=== PATIENT | female | born 2000 | race Caucasian/White ===

== ENCOUNTER 2020-02-25 15:38 | Inpatient (IN) | payer MEDICAID, SELFPAY ==
[2020-02-25 15:41] VITALS: BP 118/75; PULSE 84; RESP 15; TEMP 36.6; O2SAT 98; BMI 26.6
--- NOTE | 2020-02-25 16:07 | ED.DCSUM_ITS ---
History of Present Illness Chief Complaint: Substance Abuse Informant: Patient Narrative: Patient is a 19-year-old female with a history of anxiety, PTSD, restless leg syndrome who presents to the emergency department to detox from alcohol and fentanyl. Last time she drank was 2 days ago. She typically drinks a half a bottle of liquor per day. She last used fentanyl yesterday. She states that she smokes the fentanyl. She was sober for 7 months up until September. She has been drinking every day and using fentanyl every other day. She has gone through withdrawal before in the past. Denies ever having seizures. She currently is experiencing chills and tremors. She denies any illness including any cough, cold, congestion. No fevers or chills. She has been feeling slightly nauseous but denies any episodes of vomiting. No change in bowel habits. No urinary symptoms. She denies any chance of being . Past Medical History - Allergies and Home Meds Allergies/Adverse Reactions: Allergies No Known Allergies Allergy (Verified 02/25/20 15:38) Primary Care Physician: NOT,DEFINED [NON-STAFF] - Past Medical History: None Surgical History: no surgical history Alcohol: Heavy Drugs: - - Fentanyl Review of Systems All systems negative except as indicated General: Reports: Chills. Denies: Fever, Sweats Eyes: Denies: Visual changes - bilaterally, Diplopia ENT: Denies: Rhinorrhea, Sore throat Cardiovascular: Denies: Chest pain, Palpitations Respiratory: Denies: Dyspnea, Cough, Dyspnea on exertion Gastrointestinal: Reports: Nausea. Denies: Abdominal pain, Vomiting, Diarrhea Genitourinary: Denies: Dysuria, Hematuria, Frequency Musculoskeletal: Denies: Back pain, Extremity Pain Skin: Denies: Rash, Wounds Neurological: Denies: Headache, Weakness, Numbness Physical Exam Vital Signs/Narrative: Vital Signs Temp Pulse Resp BP Pulse Ox 02/25/20 15:41 97.8 F 84 15 118/75 98 Inital Vital Signs reviewed: Yes General: Well nourished, Well developed, No Acute Distress Head: Normocephalic, Atraumatic Eyes: Perrl, EOMI ENT: Moist mucous membranes, No rhinorrhea Neck: Supple, Nontender Cardiovascular: Regular rate, Regular rhythm, No murmurs Respiratory: No distress, CTA bilaterally, Chest nontender Abdomen: Soft, Nontender, Nondistended, Normal bowel sounds Back: Nontender, Normal Inspection Extremities: Nontender, No edema Skin: Normal color, No rash Neurological: Alert, Oriented x3, Cranial nerves II-XII grossly intact, Normal Strength, Normal Sensation Psychological: Normal affect, Normal Mood Diagnostic/Tx/Re-eval - Medical Decision Making Patient presents to the emergency department to detox for alcohol and opiates. Upon arrival to the emerge department vital signs within normal limits. She does not appear in acute distress. Will check basic lab work and plan on admission to the hospital. Lab work did not reveal any significant acute abnormality except for mild elevation in liver enzymes. Her alcohol level is negative. I did discuss with hospitalist admission. Patient understands and is agreeable with this plan. She has been stable throughout ED stay. ED Disposition - Plan for ED Patient: Disposition: [facility] Diagnosis: Alcohol use disorder, Opioid abuse Referrals: NOT,DEFINED [NON-STAFF] -
[2020-02-25 16:43] LABS: Absolute Lymphocyte Count 2.98 X10^3/uL (0.83-4.51); Absolute Neutrophil Count 4.2 X10^3/uL (2.0-7.7); Basophil# 0.08 X10^3/uL; Eosinophil# 0.36 X10^3/uL; Eosinophils% 4.4 % (0-5); Hematocrit 44.1 % (37-47); Hemoglobin 14.2 g/dL (12.0-15.0); Lymphocyte # 2.98 X10^3/ul (4.0); Lymphocyte % 36.5 % (19-41); Mean Corp Hgb Conc 32.2 g/dL (32-36); Mean Corpuscular Hgb 29.6 pg (27.0-32.0); Mean Corpuscular Volume 91.9 fL (81-99); Mean Platelet Vol. 9.8 fl (6.2-12.0); Monocyte# 0.52 X10^3/uL; Monocyte% 6.4 % (0-10); NRBC Flagged by Analyzer 0 % (0-5); Neutrophil # 4.21 X10^3/uL (2.7-7.7); Neutrophil % 51.5 % (47-70); Platelet Count 262 K/mm3 (150-450); RBC Distribution Width CV 11.8 % (11.6-14.6); RBC Distribution Width SD 39.8 fl (35.1-43.9); White Blood Count 8.2 K/mm3 (4.4-11.0)
[2020-02-25 16:56] LABS: ALB/GLOB Ratio 0.9 RATIO (0.9-2.4); AST(SGOT) 55 U/L (15-37); Alanine Aminotransfer ALT/SGPT 77 U/L (13-56); Albumin, Serum 3.4 g/dL (3.2-5.0); Alkaline Phosphatase 90 U/L (45-117); Anion Gap 3 (5-15); BUN 10 mg/dL (7-18); Calcium,Total 8.7 mg/dL (8.5-10.1); Chloride 106 mmol/L (98-107); Creatinine, Serum 0.62 mg/dL (0.55-1.02); EST Glomerular Filtration Rate 128 mL/min (>60); Est Glom Filt Rate - Afr Amer 155 mL/min (>60); Estimated Creatinine Clearance 134.37 ml/min; Globulin 3.9 g/dL (2.2-4.2); Glucose 86 mg/dL (74-106); Protein, Total 7.3 g/dL (6.4-8.2); Sodium Level 137 mmol/L (136-145)
[2020-02-25 17:02] LABS: Internal QC Validated? YES +Cl - CLEAR BKGD
[2020-02-25 17:23] LABS: Pregnancy, Serum, hCG Quali. NEGATIVE Negative (0-9 Nonpreg)
[2020-02-25 17:24] LABS: Alcohol, Blood (Medical)-Serum < 3.0 mg/dL
[2020-02-25 17:44] VITALS: BMI 26.7
[2020-02-25 17:56] VITALS: BP 108/48; PULSE 89; RESP 18; TEMP 36.8; O2SAT 98
--- NOTE | 2020-02-25 18:02 | HP.PCM_ITS ---
Problem List (1) Alcohol use disorder Status: Acute (2) Opioid abuse Status: Acute History of Present Illness Date of Admission: 02/25/20 Chief Complaint: Requesting detox from alcohol and opioids. The patient is a 19 year old F who presents emergency room requesting opioid and alcohol detox. Patient reports she smokes fentanyl, typically every other day. She also reports daily alcohol use, drinking 1/5 of whiskey or more per day. Patient states she completed residential treatment March of last year and was sober until this past September. She denies other drug use. Currently complains of feeling shaky. Current half pack per day smoker. She has a past medical history of anxiety, depression, PTSD. 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 Paternal History Items: Diabetes Review of Systems Constitutional: Reports: - - Feels shaky.. Denies: Chills, Fever, Weight Change HEENT: Denies: Head Aches, Sinus Congestion, Sinus Drainage Cardiovascular: Denies: Chest Pain, Palpitations Respiratory: Denies: Cough, Shortness of breath at rest, Sputum production Gastrointestinal: Denies: Abdominal Pain, Nausea, Vomiting Genitourinary: Denies: Dysuria Musculoskeletal: Denies: Joint Pain, Joint Tenderness Skin: Denies: Rash, Wounds Neurological: Denies: Numbness, Tingling, Focal weakness Psychiatric: Denies: Anxiety, Depression, Homicidal Ideations, Suicidal Ideations Hematologic/ Lymphatic: Denies: Easy Bruising, Easy Bleeding VTE Information - Inpt Only VTE Present on Admission: No VTE Mechan Device Prophylaxis: None VTE Pharm Prophylaxis ordered?: No Reason prophylaxis not ordered:: Treatment Not Indicated Patient Problems: Active and Suspected Problems Alcohol use disorder (Acute) Opioid abuse (Acute) - Physical Exam Vitals/I&O's: Vital Signs Temp Pulse Resp BP Pulse Ox 98.2 F 89 18 108/48 L 98 02/25/20 17:56 02/25/20 17:56 02/25/20 17:56 02/25/20 17:56 02/25/20 17:56 Oxygen Delivery Method Room Air Weight: 165 lb 2.02 oz Body Mass Index (BMI) 26.6 General: Alert, Oriented x3, Cooperative HEENT: Atraumatic, PERRLA, EOMI, Normocephalic Neck: Supple, No JVD, Negative Carotid Bruits Lungs: Clear to auscultation, Normal air movement Cardiovascular: Regular rate, No murmurs Abdomen: Bowel Sounds Present, Soft, Non Tender, Non-Distended Extremities: No clubbing, No cyanosis, No edema, Capillary Refill Less than 3 Seconds Skin: No rashes, No breakdown Musculoskeletal: No Tenderness to Palpation of Joints or Extremities Neurological: Cranial nerves II-XII grossly intact, Neuro grossly intact Psych/Mental Status: Anxious Laboratory Results 02/25/20 16:24: WBC 8.2, RBC 4.80, Hgb 14.2, Hct 44.1, MCV 91.9, MCH 29.6, MCHC 32.2, RDW Std Deviation 39.8, RDW Coeff of [place] 11.8, Plt Count 262, MPV 9.8, Immature Gran % (Auto) 0.200, Neut % (Auto) 51.5, Lymph % (Auto) 36.5, [place] % (Auto) 6.4, Eos % (Auto) 4.4, Baso % (Auto) 1.0, Absolute Neuts (auto) 4.2, Absolute Lymphs (auto) 2.98, Nucleated RBC % 0 02/25/20 16:24: Sodium 137, Potassium 4.0, Chloride 106, Carbon Dioxide 28.0, Anion Gap 3 L, BUN 10, Creatinine 0.62, Estim Creat Clear Calc 134.37, Est GFR (MDRD) Af Amer 155, Est GFR (MDRD) Non-Af 128, BUN/Creatinine Ratio 16.0, Glucose 86, Calcium 8.7, Total Bilirubin 0.30, AST 55 H, ALT 77 H, Alkaline Phosphatase 90, Total Protein 7.3, Albumin 3.4, Globulin 3.9, Albumin/Globulin Ratio 0.9 10/08/20 16:24: Ethyl Alcohol < 3.0 02/25/20 16:26: Urine Opiates Screen Pending, Urine Methadone Screen Pending, Ur Barbiturates Screen Pending, Ur Phencyclidine Scrn Pending, Ur Amphetamines Screen Pending, U Methamphetamin-MDMA Pending, U Benzodiazepines Scrn Pending, Urine Cocaine Screen Pending, U Cannabinoids Screen Pending, Ur Drug Screen Comment 02/25/20 16:26: Serum , Qual NEGATIVE Assessment/Plan All Active Problems Alcohol use disorder (Acute) Opioid abuse (Acute) 1. Polysubstance abuse with opioid and alcohol withdrawal-tox screen pending. Alcohol level on admission normal. Buprenorphine/phenobarb taper. PRN regimen for somatic complaints. Thiamine, folic acid supplementation. [facility] consult. CIWA/Ativan protocol. 2. Tobacco dependence-encouraged cessation. Declines nicotine replacement patch. 3. Anxiety/depression/PTSD-on BuSpar, prazosin, Seroquel. DVT prophylaxis-not indicated, early ambulation This patient was seen by KELLY Santos under the supervision of Dr. Chery.
[2020-02-25 18:24] VITALS: BMI 25.7
[2020-02-25 18:28] VITALS: BP 106/73; PULSE 75; RESP 18; TEMP 36.2; O2SAT 100
[2020-02-25] MEDS: Buprenorphine HCl 2 MG TAB.SUBL 4 MG SL (19:04)
[2020-02-25] MEDS: cloNIDine HCl 0.1 MG Tablet PO (19:04)
[2020-02-25] MEDS: Ondansetron 8 MG Tablet PO (19:04)
[2020-02-25] MEDS: Phenobarbital 32.4 MG Tablet 97.2 MG PO ×2 (19:04→22:37)
[2020-02-25 19:41] LABS: Amphetamine Urine VISTA NEGATIVE (<1000 ng/mL); Barbiturate Urine VISTA NEGATIVE (< 200 ng/mL); Benzodiazepine Urine VISTA NEGATIVE (< 200 ng/mL); Cocaine Urine VISTA POSITIVE (< 300 ng/mL); Ecstacy Urine VISTA NEGATIVE (< 500 ng/mL); Methadone Urine VISTA NEGATIVE (< 300 ng/mL); PCP Urine VISTA NEGATIVE (< 25 ng/mL); THC Urine VISTA NEGATIVE (< 50 ng/mL); Vista UDS pH Range 6
[2020-02-25] MEDS: QUEtiapine 100 MG Tablet 200 MG PO (22:38)
[2020-02-25 22:40] VITALS: BP 102/57; PULSE 67; RESP 18; TEMP 37.1; O2SAT 97
[2020-02-25] MEDS: LORazepam 1 MG Tablet 2 MG PO (22:54)
[2020-02-26 03:24] VITALS: BP 90/38; PULSE 70; RESP 18; TEMP 36.9; O2SAT 96
[2020-02-26] MEDS: Phenobarbital 32.4 MG Tablet 97.2 MG PO ×5 (03:30→18:06)
[2020-02-26] MEDS: Buprenorphine HCl 2 MG TAB.SUBL 4 MG SL ×3 (03:30→18:06)
[2020-02-26 04:21] VITALS: BP 99/48; PULSE 77; RESP 16; TEMP 36.1; O2SAT 95
[2020-02-26 06:01] VITALS: BP 106/59; PULSE 75; O2SAT 94
[2020-02-26] MEDS: Thiamine Hydrochloride 100 MG Tablet PO (10:05)
[2020-02-26] MEDS: busPIRone 15 MG TABLET PO (10:05)
[2020-02-26] MEDS: Folic Acid 1 MG Tablet PO (10:06)
--- NOTE | 2020-02-26 10:06 | ADDICTION ---
This greeting card writer met with patient in her room to conduct ASAM, MSE, AUDIT and DUDIT assessments and to begin discharge planning. Patient was alert and oriented x4 and participated affectively in this session. She appears appropriate for the 4.0 LOC at this time based on recent use of alcohol and fentanyl and her report of current withdrawal symptoms. Her d/c plan is as follows: * patient reports that her mother will be providing transport. * patient has an appointment on 02/29/2020 with [facility] in [place], [place] for counseling and IOP which was scheduled prior to admit into medical withdrawal management at [facility]. * she reported no other needs and declined further d/c planning.
[2020-02-26] MEDS: Ondansetron 8 MG Tablet PO (10:11)
[2020-02-26 10:20] VITALS: BP 105/65; PULSE 75; RESP 16; TEMP 36.6; O2SAT 95
--- NOTE | 2020-02-26 11:56 | PN_ITS ---
<Kaur Kumar DINING CAR STEWARD - Last Filed: 02/26/20 12:01> Patient Problems: Active and Suspected Problems Alcohol use disorder (Acute) Opioid abuse (Acute) Subjective: Patient seen and examined. Drowsy, falling asleep during conversation. Denies current withdrawal symptoms or other complaints. - Physical Exam Vitals/I&O's: Vital Signs Temp Pulse Resp BP Pulse Ox 97.9 F 75 16 105/65 95 02/26/20 10:20 02/26/20 10:20 02/26/20 10:20 02/26/20 10:20 02/26/20 10:20 Oxygen Delivery Method Room Air Weight: 159 lb 6.307 oz Body Mass Index (BMI) 25.7 Intake and Output for Last 24 Hours 02/24/20 02/25/20 02/26/20 23:59 23:59 23:59 Intake Total 820 / 820 720 / 720 Balance 820 / 820 720 / 720 General: Oriented x3, Cooperative, No apparent distress, - - Drowsy HEENT: Atraumatic, PERRLA, EOMI, Normocephalic Neck: Supple, No JVD, Negative Carotid Bruits Lungs: Clear to auscultation, Normal air movement Cardiovascular: Regular rate, No murmurs Abdomen: Bowel Sounds Present, Soft, Non Tender Extremities: No edema, Capillary Refill Less than 3 Seconds Skin: No rashes, No breakdown Musculoskeletal: No Tenderness to Palpation of Joints or Extremities Neurological: Cranial nerves II-XII grossly intact, Neuro grossly intact Psych/Mental Status: Flat Affect Laboratory Results 02/25/20 16:24: WBC 8.2, RBC 4.80, Hgb 14.2, Hct 44.1, MCV 91.9, MCH 29.6, MCHC 32.2, RDW Std Deviation 39.8, RDW Coeff of [place] 11.8, Plt Count 262, MPV 9.8, Immature Gran % (Auto) 0.200, Neut % (Auto) 51.5, Lymph % (Auto) 36.5, [place] % (Auto) 6.4, Eos % (Auto) 4.4, Baso % (Auto) 1.0, Absolute Neuts (auto) 4.2, Absolute Lymphs (auto) 2.98, Nucleated RBC % 0 02/25/20 16:24: Sodium 137, Potassium 4.0, Chloride 106, Carbon Dioxide 28.0, Anion Gap 3 L, BUN 10, Creatinine 0.62, Estim Creat Clear Calc 134.37, Est GFR (MDRD) Af Amer 155, Est GFR (MDRD) Non-Af 128, BUN/Creatinine Ratio 16.0, Glucose 86, Calcium 8.7, Total Bilirubin 0.30, AST 55 H, ALT 77 H, Alkaline Phosphatase 90, Total Protein 7.3, Albumin 3.4, Globulin 3.9, Albumin/Globulin Ratio 0.9 02/25/20 16:24: Ethyl Alcohol < 3.0 02/25/20 16:26: Urine Opiates Screen POSITIVE H, Urine Methadone Screen NEGATIVE, Ur Barbiturates Screen NEGATIVE, Ur Phencyclidine Scrn NEGATIVE, Ur Amphetamines Screen NEGATIVE, U Methamphetamin-MDMA NEGATIVE, U Benzodiazepines Scrn NEGATIVE, Urine Cocaine Screen POSITIVE H, U Cannabinoids Screen NEGATIVE, Ur Drug Screen Comment 02/25/20 16:26: Serum , Qual NEGATIVE Current Medications Acetaminophen (Tylenol) 500 mg PO Q4H PRN PRN PRN Reason: Temp > 100.4 F Buprenorphine HCl (Buprenorphine Hcl) 4 mg SL Q8H [facility]; Taper Stop: 02/28/20 18:59 Last Admin: 02/26/20 10:11 Dose: 4 mg Documented by: Buspirone HCl (Buspar) 15 mg PO DAILY [facility] Last Admin: 02/26/20 10:05 Dose: 15 mg Documented by: Clonidine (Catapres) 0.1 mg PO Q8H PRN PRN PRN Reason: RESTLESSNESS Last Admin: 02/25/20 19:04 Dose: 0.1 mg Documented by: Folic Acid (Folic Acid) 1 mg PO DAILY@0800 [facility] Last Admin: 02/26/20 10:06 Dose: 1 mg Documented by: Ibuprofen (Motrin) 600 mg PO Q8H PRN PRN PRN Reason: Pain Score 1-10/10 Lorazepam (Ativan) 2 mg PO Q2H PRN PRN; Protocol PRN Reason: CIWA score > 8 but <15 Last Admin: 02/25/20 22:54 Dose: 2 mg Documented by: Lorazepam (Ativan) 2 mg PO UD PRN; Protocol PRN Reason: CIWA score >/=15. Lorazepam (Ativan) 2 mg IV Q2H PRN PRN; Protocol PRN Reason: CIWA score > 8 but <15 Lorazepam (Ativan) 2 mg IV UD PRN; Protocol PRN Reason: CIWA score >/=15. Ondansetron HCl (Zofran) 8 mg PO Q8H PRN PRN PRN Reason: NAUSEA Last Admin: 02/26/20 10:11 Dose: 8 mg Documented by: Phenobarbital (Phenobarbital) 97.2 mg PO Q4H [facility]; Taper Stop: 03/01/20 02:59 Last Admin: 02/26/20 10:11 Dose: 97.2 mg Documented by: Quetiapine Fumarate (Seroquel) 200 mg PO QHS [facility] Last Admin: 02/25/20 22:38 Dose: 200 mg Documented by: Sodium Chloride () 10 - 40 ml IV UD PRN PRN Reason: SALINE FLUSH Thiamine HCl (Vitamin B1) 100 mg PO DAILYCM [facility] Last Admin: 02/26/20 10:05 Dose: 100 mg Documented by: Medical Necessity - Tobacco Use Smoking Status: Current every day smoker Tobacco Use: Cigarettes Assessment/Plan All Active Problems Alcohol use disorder (Acute) Opioid abuse (Acute) 1. Polysubstance abuse with opioid and alcohol withdrawal-tox screen positive for opiates and cocaine. Alcohol level on admission normal. Buprenorphine/phenobarb taper. PRN regimen for somatic complaints. Thiamine, folic acid supplementation. [facility] consult. CIWA/Ativan protocol. 2. Tobacco dependence-encouraged cessation. Declines nicotine replacement patch. 3. Anxiety/depression/PTSD-on BuSpar, prazosin, Seroquel. DVT prophylaxis-not indicated, early ambulation This patient was seen by KELLY Santos under the supervision of Dr. Trammell. <Kimberly Trammell - Last Filed: 02/26/20 12:26> - Physical Exam Vitals/I&O's: Vital Signs Temp Pulse Resp BP Pulse Ox 97.9 F 75 16 105/65 95 02/26/20 10:20 02/26/20 10:20 02/26/20 10:20 02/26/20 10:20 02/26/20 10:20 Oxygen Delivery Method Room Air Weight: 159 lb 6.307 oz Body Mass Index (BMI) 25.7 Intake and Output for Last 24 Hours 02/24/20 02/25/20 02/26/20 23:59 23:59 23:59 Intake Total 820 / 820 720 / 720 Balance 820 / 820 720 / 720 Laboratory Results 02/25/20 16:24: WBC 8.2, RBC 4.80, Hgb 14.2, Hct 44.1, MCV 91.9, MCH 29.6, MCHC 32.2, RDW Std Deviation 39.8, RDW Coeff of [place] 11.8, Plt Count 262, MPV 9.8, Immature Gran % (Auto) 0.200, Neut % (Auto) 51.5, Lymph % (Auto) 36.5, [place] % (Auto) 6.4, Eos % (Auto) 4.4, Baso % (Auto) 1.0, Absolute Neuts (auto) 4.2, Absolute Lymphs (auto) 2.98, Nucleated RBC % 0 02/25/20 16:24: Sodium 137, Potassium 4.0, Chloride 106, Carbon Dioxide 28.0, Anion Gap 3 L, BUN 10, Creatinine 0.62, Estim Creat Clear Calc 134.37, Est GFR (MDRD) Af Amer 155, Est GFR (MDRD) Non-Af 128, BUN/Creatinine Ratio 16.0, Glucose 86, Calcium 8.7, Total Bilirubin 0.30, AST 55 H, ALT 77 H, Alkaline Phosphatase 90, Total Protein 7.3, Albumin 3.4, Globulin 3.9, Albumin/Globulin Ratio 0.9 02/25/20 16:24: Ethyl Alcohol < 3.0 02/25/20 16:26: Urine Opiates Screen POSITIVE H, Urine Methadone Screen NEGATIVE, Ur Barbiturates Screen NEGATIVE, Ur Phencyclidine Scrn NEGATIVE, Ur Amphetamines Screen NEGATIVE, U Methamphetamin-MDMA NEGATIVE, U Benzodiazepines Scrn NEGATIVE, Urine Cocaine Screen POSITIVE H, U Cannabinoids Screen NEGATIVE, Ur Drug Screen Comment 02/25/20 16:26: Serum , Qual NEGATIVE Current Medications Acetaminophen (Tylenol) 500 mg PO Q4H PRN PRN PRN Reason: Temp > 100.4 F Buprenorphine HCl (Buprenorphine Hcl) 4 mg SL Q8H [facility]; Taper Stop: 02/28/20 18:59 Last Admin: 02/26/20 10:11 Dose: 4 mg Documented by: Buspirone HCl (Buspar) 15 mg PO DAILY [facility] Last Admin: 02/26/20 10:05 Dose: 15 mg Documented by: Clonidine (Catapres) 0.1 mg PO Q8H PRN PRN PRN Reason: RESTLESSNESS Last Admin: 02/25/20 19:04 Dose: 0.1 mg Documented by: Folic Acid (Folic Acid) 1 mg PO DAILY@0800 [facility] Last Admin: 02/26/20 10:06 Dose: 1 mg Documented by: Ibuprofen (Motrin) 600 mg PO Q8H PRN PRN PRN Reason: Pain Score 1-10/10 Lorazepam (Ativan) 2 mg PO Q2H PRN PRN; Protocol PRN Reason: CIWA score > 8 but <15 Last Admin: 02/26/20 12:14 Dose: 2 mg Documented by: Lorazepam (Ativan) 2 mg PO UD PRN; Protocol PRN Reason: CIWA score >/=15. Lorazepam (Ativan) 2 mg IV Q2H PRN PRN; Protocol PRN Reason: CIWA score > 8 but <15 Lorazepam (Ativan) 2 mg IV UD PRN; Protocol PRN Reason: CIWA score >/=15. Ondansetron HCl (Zofran) 8 mg PO Q8H PRN PRN PRN Reason: NAUSEA Last Admin: 02/26/20 10:11 Dose: 8 mg Documented by: Phenobarbital (Phenobarbital) 97.2 mg PO Q4H [facility]; Taper Stop: 03/01/20 02:59 Last Admin: 02/26/20 10:11 Dose: 97.2 mg Documented by: Quetiapine Fumarate (Seroquel) 200 mg PO QHS [facility] Last Admin: 02/25/20 22:38 Dose: 200 mg Documented by: Sodium Chloride () 10 - 40 ml IV UD PRN PRN Reason: SALINE FLUSH [facility] Admin: 02/26/20 10:05 Dose: 100 mg Documented by: Assessment/Plan Patient seen by Kaur MENDOZA under my supervision Patient seen and examined. She complains of generally feeling horrible today, as she is having abdominal cramps, hot flashes and tremors. Review of systems is otherwise negative. O/E: Vital Signs Temp Pulse Resp BP Pulse Ox 97.9 F 75 16 105/65 95 02/26/20 10:20 02/26/20 10:20 02/26/20 10:20 02/26/20 10:20 02/26/20 10:20 General: Oriented x3, Cooperative, No apparent distress, HEENT: Atraumatic, PERRLA, EOMI, Normocephalic Neck: Supple, No JVD, Negative Carotid Bruits Lungs: Clear to auscultation, Normal air movement Cardiovascular: Regular rate, No murmurs Abdomen: Bowel Sounds Present, Soft, Non Tender Extremities: No edema, Capillary Refill Less than 3 Seconds Skin: No rashes, No breakdown Musculoskeletal: No Tenderness to Palpation of Joints or Extremities Neurological: Cranial nerves II-XII grossly intact, Neuro grossly intact Psych/Mental Status: normal affect Plan is to continue with buprenorphine and phenobarb withdrawal protocol for opiates and alcohol respectively. Monitor CINA and CIWA score. Thiamine, multivitamin folic acid supplementation. Nicotine patch. Rest as per KELLY Santos's notes which I reviewed and endorsed. Inpatient E&M: 21925 Subs Hosp L2
[2020-02-26] MEDS: LORazepam 1 MG Tablet 2 MG PO ×3 (12:14→18:08)
[2020-02-26] MEDS: Ibuprofen 600 MG Tablet PO (12:33)
[2020-02-26] MEDS: cloNIDine HCl 0.1 MG Tablet PO (12:33)
[2020-02-26 17:20] VITALS: BP 156/115; PULSE 75; RESP 16; TEMP 36.7; O2SAT 95
--- NOTE | 2020-02-27 08:46 | PCM.DC.SUM ---
<Kaur Kumar TEXTILE TECHNICAL OFFICER - Last Filed: 02/27/20 08:51> Discharge Date and Diagnosis Date of Admission: 02/25/20 Date of Discharge: 02/26/20 - Primary Discharge Diagnosis Acute Problems: 1. Polysubstance abuse with opioid and alcohol withdrawal 2. Tobacco dependence 3. Anxiety/depression/PTSD Hospital Course and Treatment Operations: None Procedures: None Summary of Care Provided: The patient is a 19 year old F admitted 02/25/2020 due to requesting detox from alcohol and opioids. 1. Polysubstance abuse with opioid and alcohol withdrawal-tox screen positive for opiates and cocaine. Alcohol level on admission normal. Buprenorphine/phenobarb taper during admission. [facility] met with patient during admission and plan was for intensive outpatient program with appointment 02/29/2020 following medical stabilization protocol. However, patient signed out AGAINST MEDICAL ADVICE 24 hours after being admitted. 2. Tobacco dependence-encouraged cessation. Declined nicotine replacement patch. 3. Anxiety/depression/PTSD-on BuSpar, prazosin, Seroquel. General: Alert, Oriented x3, Cooperative HEENT: Atraumatic, PERRLA, EOMI, Normocephalic Neck: Supple, No JVD, Negative Carotid Bruits Lungs: Clear to auscultation, Normal air movement Cardiovascular: Regular rate, No murmurs Abdomen: Bowel Sounds Present, Soft, Non Tender, Non-Distended Extremities: No clubbing, No cyanosis, No edema, Capillary Refill Less than 3 Seconds Skin: No rashes, No breakdown Musculoskeletal: No Tenderness to Palpation of Joints or Extremities Neurological: Cranial nerves II-XII grossly intact, Neuro grossly intact Psych/Mental Status: Anxious Patient seen and examined prior to discharge. Physical assessment as noted above. Patient is stable for discharge with follow up recommendations as noted above. This patient was seen by SYED SantosC under the supervision of Dr. Trammell. - Physical Exam Vitals/I&O's: Vital Signs Temp Pulse Resp BP Pulse Ox 98.0 F 75 16 156/115 H 95 02/26/20 17:20 02/26/20 17:20 02/26/20 17:20 02/26/20 17:20 02/26/20 17:20 Oxygen Delivery Method Room Air Weight: 159 lb 6.307 oz Body Mass Index (BMI) 25.7 Intake and Output for Last 24 Hours 02/25/20 02/26/20 02/27/20 23:59 23:59 23:59 Intake Total 820 / 820 720 / 720 Balance 820 / 820 720 / 720 Home Medications: Medications to take at Discharge Prazosin HCl 2 mg PO QHS 02/25/20 Quetiapine Fumarate [Seroquel] 200 mg PO QHS 02/25/20 busPIRone [Buspar] 15 mg PO DAILY 02/25/20 Primary Care Physician: NOT,DEFINED [NON-STAFF] - Disposition: Against Medical Advice Minutes spent on discharge:: 35 Patient Condition:: Stable Medical Necessity - Tobacco Use Smoking Status: Current every day smoker Tobacco Use: Cigarettes Meaningful Use Info Meaningful Use Diagnoses (Choose all that apply): None applicable <BonnieyesicaKimberly Henley - Last Filed: 02/27/20 13:30> Hospital Course and Treatment Summary of Care Provided: Patient seen by KELLY Santos under my supervision. The patient is a 19 year old F with past medical history of polysubstance abuse was admitted for opioid and alcohol withdrawal. She was started on alcohol withdrawal protocol with phenobarbital and opiate withdrawal protocol with buprenorphine. Patient met with 180 during admission and plan was for her to have intensive outpatient program. Patient appeared to be tolerating withdrawal protocol well but signed out AGAINST MEDICAL ADVICE on 02/26/2020. Patient was seen and examined prior to her leaving [facility]. She complained of feeling listless and complained of cramps and tremors and generally did not feel good because of withdrawal. Review of symptoms otherwise negative. O/E: Vital Signs Temp Pulse Resp BP Pulse Ox 98.0 F 75 16 156/115 H 95 02/26/20 17:20 02/26/20 17:20 02/26/20 17:20 02/26/20 17:20 02/26/20 17:20 [] General: Oriented x3, Cooperative, No apparent distress, HEENT: Atraumatic, PERRLA, EOMI, Normocephalic Neck: Supple, No JVD, Negative Carotid Bruits Lungs: Clear to auscultation, Normal air movement Cardiovascular: Regular rate, No murmurs Abdomen: Bowel Sounds Present, Soft, Non Tender Extremities: No edema, Capillary Refill Less than 3 Seconds Skin: No rashes, No breakdown Musculoskeletal: No Tenderness to Palpation of Joints or Extremities Neurological: Cranial nerves II-XII grossly intact, Neuro grossly intact Psych/Mental Status: normal affect Patient left AGAINST MEDICAL ADVICE. Total time spent on the none evaluating patient and on discharge: 35 mins - Physical Exam Vitals/I&O's: Vital Signs Temp Pulse Resp BP Pulse Ox 98.0 F 75 16 156/115 H 95 02/26/20 17:20 02/26/20 17:20 02/26/20 17:20 02/26/20 17:20 02/26/20 17:20 Oxygen Delivery Method Room Air Weight: 159 lb 6.307 oz Body Mass Index (BMI) 25.7 Intake and Output for Last 24 Hours 02/25/20 02/26/20 02/27/20 23:59 23:59 23:59 Intake Total 820 / 820 720 / 720 Balance 820 / 820 720 / 720 Inpatient E&M: 10172 Disch Hosp
== END 2020-02-26 18:38 | disposition left against medical advice (07) | DRG 770 ==
LOC: ED 16:44 → MS3 19:29
PROVIDERS: Admitting Provider Internal Medicine; Emergency Provider Emergency Medicine; Visit Provider Student in an Organized Health Care Education/Training Program
DX: F10.139 Alcohol abuse with withdrawal, unspecified (principal); F11.13 Opioid abuse with withdrawal; F43.10 Post-traumatic stress disorder, unspecified; F32.9 Major depressive disorder, single episode, unspecified; F41.9 Anxiety disorder, unspecified; F17.210 Nicotine dependence, cigarettes, uncomplicated; Z79.899 Other long term (current) drug therapy
CPT/HCPCS: 80053; 80307; 80320; 84703; 85025; 99283; A4216; G0480

== ENCOUNTER 2020-04-02 16:58 | Inpatient (IN) | payer MEDICAID, SELFPAY ==
[2020-04-02 17:00] VITALS: BP 149/39; PULSE 116; RESP 20; TEMP 36.2; O2SAT 99; BMI 26.6
--- NOTE | 2020-04-02 17:10 | ED.VIS.GEN ---
History of Present Illness Chief Complaint: Substance Abuse Informant: Patient Onset: Month(s) - 6 Timing: Continuous - 2x daily fentanyl use Narrative: Patient presenting wanting detox from fentanyl and less so, alcohol. She has a history of fentanyl abuse and was sober for 8 months until about 6 months ago, and since then she has been using twice daily, smoking. No IV drug use. Also has been drinking, about a 750 mL bottle of week bourbon whiskey every 2 days. Her last use of alcohol was 2-3 days ago, last use of fentanyl was yesterday morning about 30-36 hours prior to arrival. She currently is feeling symptoms of withdrawal from fentanyl, she is malaised, feeling anxious/restless, sweaty, nauseated. - Past Medical History (1) Anxiety Status: Chronic (2) RLS (restless legs syndrome) Status: Chronic Past Medical History - Allergies and Home Meds Allergies/Adverse Reactions: Allergies No Known Allergies Allergy (Verified 04/02/20 17:00) Primary Care Physician: Care Physician,No Primary [Primary Care Provider] - Surgical History: no surgical history Smoking Status: Current every day smoker Alcohol: Heavy Drugs: - - smokes fentanyl - Family History Maternal Family History: Reports: - - Denies known maternal medical history including cardiac history. Paternal Family History: Reports: Diabetes Review of Systems General: Reports: Malaise, Sweats Eyes: Denies: Visual changes - bilaterally, Diplopia ENT: Denies: Bilateral ear pain, Rhinorrhea, Sore throat Cardiovascular: Denies: Chest pain, Palpitations Respiratory: Denies: Dyspnea, Cough, Dyspnea on exertion Gastrointestinal: Reports: Nausea. Denies: Abdominal pain, Vomiting, Diarrhea, Melena, Hematochezia Genitourinary: Reports: - - LNMP 10/, usually regular. Denies: Dysuria, Hematuria, Frequency Musculoskeletal: Reports: Myalgias. Denies: Back pain, Swelling, Extremity Pain Skin: Denies: Rash, Wounds Neurological: Denies: Headache, Weakness, Numbness Physical Exam Vital Signs/Narrative: Vital Signs Temp Pulse Resp BP Pulse Ox 04/02/20 17:00 97.2 F L 116 H 20 H 149/39 H 99 Inital Vital Signs reviewed: Yes General: Well nourished, Well developed, No Acute Distress - Well-appearing Head: Normocephalic, Atraumatic Eyes: Perrl, EOMI ENT: Moist mucous membranes, No rhinorrhea Neck: Supple, Nontender, No lymphadenopathy Cardiovascular: Regular rate, Regular rhythm, No murmurs, Tachycardia Respiratory: No distress, CTA bilaterally, Chest nontender Abdomen: Soft, Nontender, Nondistended, Normal bowel sounds Back: Nontender, Normal Inspection Extremities: Nontender, No edema Skin: Normal color, No rash, No Trauma Neurological: Alert, Oriented x3, Cranial nerves II-XII grossly intact, Normal Strength, Normal Sensation, Normal Gait Psychological: Normal affect, Normal Mood, - - No suicidal ideation Diagnostic/Tx/Re-eval Laboratory Results 04/02/20 04/02/20 04/02/20 17:30 17:30 17:30 WBC 8.4 RBC 4.93 Hgb 14.5 Hct 43.4 MCV 88.0 MCH 29.4 MCHC 33.4 RDW Std Deviation 37.6 RDW Coeff of [place] 11.6 Plt Count 234 MPV 10.3 Immature Gran % (Auto) 0.200 Neut % (Auto) 74.5 H Lymph % (Auto) 19.2 Mineral % (Auto) 4.4 Eos % (Auto) 1.2 Baso % (Auto) 0.5 Absolute Neuts (auto) 6.2 Absolute Lymphs (auto) 1.60 Nucleated RBC % 0 PT 13.4 INR 1.1 Sodium 137 Potassium 4.0 Chloride 111 H Carbon Dioxide 23.0 Anion Gap 3 L BUN 8 Creatinine 0.78 Estim Creat Clear Calc 102.66 Est GFR (MDRD) Af Amer 119 Est GFR (MDRD) Non-Af 98 BUN/Creatinine Ratio 10.2 Glucose 97 Calcium 9.6 Total Bilirubin 0.60 AST 54 H ALT 91 H Alkaline Phosphatase 101 Total Protein 7.8 Albumin 3.8 Globulin 4.0 Albumin/Globulin Ratio 1.0 Urine Color Urine Clarity Urine pH Ur Specific [place] Urine Protein Urine Glucose (UA) Urine Ketones Urine Occult Blood Urine Nitrite Urine Bilirubin Urine Urobilinogen Ur Leukocyte Esterase Urine RBC Urine WBC Ur Squamous Epith Cells Urine Bacteria Urine Mucus Urine Test Urine Opiates Screen Urine Methadone Screen Ur Barbiturates Screen Ur Phencyclidine Scrn Ur Amphetamines Screen U Methamphetamin-MDMA U Benzodiazepines Scrn Urine Cocaine Screen U Cannabinoids Screen Ur Drug Screen Comment Ethyl Alcohol 11/04/02/20 04/02/20 17:30 17:30 17:30 WBC RBC Hgb Hct MCV MCH MCHC RDW Std Deviation RDW Coeff of [place] Plt Count MPV Immature Gran % (Auto) Neut % (Auto) Lymph % (Auto) Mineral % (Auto) Eos % (Auto) Baso % (Auto) Absolute Neuts (auto) Absolute Lymphs (auto) Nucleated RBC % PT INR Sodium Potassium Chloride Carbon Dioxide Anion Gap BUN Creatinine Estim Creat Clear Calc Est GFR (MDRD) Af Amer Est GFR (MDRD) Non-Af BUN/Creatinine Ratio Glucose Calcium Total Bilirubin AST ALT Alkaline Phosphatase Total Protein Albumin Globulin Albumin/Globulin Ratio Urine Color Yellow Urine Clarity Sl. Cloudy Urine pH 6.5 Ur Specific [place] 1.010 Urine Protein Negative Urine Glucose (UA) Normal Urine Ketones Negative Urine Occult Blood Negative Urine Nitrite Negative Urine Bilirubin Negative Urine Urobilinogen Normal Ur Leukocyte Esterase Negative Urine RBC 0 SEEN Urine WBC 0 SEEN Ur Squamous Epith Cells 0-5 SEEN Urine Bacteria 1+ Urine Mucus 0 SEEN Urine Test Negative Urine Opiates Screen NEGATIVE Urine Methadone Screen NEGATIVE Ur Barbiturates Screen NEGATIVE Ur Phencyclidine Scrn NEGATIVE Ur Amphetamines Screen NEGATIVE U Methamphetamin-MDMA NEGATIVE U Benzodiazepines Scrn NEGATIVE Urine Cocaine Screen NEGATIVE U Cannabinoids Screen NEGATIVE Ur Drug Screen Comment Ethyl Alcohol 9.0 - Medical Decision Making Patient is medically cleared. She was given clonidine, Zofran, Vistaril for her withdrawal symptoms. Discussed with hospitalist for detox admission. ED Disposition - Plan for ED Patient: Disposition: Acute Care [facility] Diagnosis: Opiate dependence, Alcohol abuse Referrals: Care Physician,No Primary [Primary Care Provider] -
[2020-04-02] MEDS: cloNIDine HCl 0.1 MG Tablet PO (17:29)
[2020-04-02] MEDS: Ondansetron ODT 4 MG Tablet 8 MG PO (17:29)
[2020-04-02] MEDS: hydrOXYzine PAM 25 MG Capsule 50 MG PO (17:29)
[2020-04-02 17:46] LABS: Mucous, Urine 0 SEEN /hpf (<or=2+); Red Blood Cells-Urine 0 SEEN /hpf (0-5); White Blood Cells 0 SEEN /hpf (0-5)
[2020-04-02 17:47] LABS: Absolute Neutrophil Count 6.2 X10^3/uL (2.0-7.7); Basophil# 0.04 X10^3/uL; Basophil% 0.5 % (0-1); Eosinophils% 1.2 % (0-5); Hematocrit 43.4 % (37-47); Hemoglobin 14.5 g/dL (12.0-15.0); Lymphocyte % 19.2 % (19-41); Mean Corp Hgb Conc 33.4 g/dL (32-36); Mean Corpuscular Hgb 29.4 pg (27.0-32.0); Mean Platelet Vol. 10.3 fl (6.2-12.0); Monocyte# 0.37 X10^3/uL; Monocyte% 4.4 % (0-10); NRBC Flagged by Analyzer 0 % (0-5); Neutrophil # 6.22 X10^3/uL (2.7-7.7); Neutrophil % 74.5 % (47-70); Platelet Count 234 K/mm3 (150-450); RBC Distribution Width CV 11.6 % (11.6-14.6); RBC Distribution Width SD 37.6 fl (35.1-43.9); Red Blood Count 4.93 M/mm3 (4.2-5.4); White Blood Count 8.4 K/mm3 (4.4-11.0)
[2020-04-02 17:49] LABS: Color, Urine Yellow (Yellow); Glucose, Dipstick Normal (Normal); Ketone-Dipstick Negative (Negative); Leukocyte Esterase-Dipstick Negative /ul (Negative); Nitrite-Dipstick Negative (Negative); Occult Blood-Urine Negative /ul (Negative); Protein-Dipstick Negative (Negative); Urine Bilirubin Dipstick Negative (Negative); Urine Clarity Sl. Cloudy (Clear); Urine Urobilinogen Normal (Normal); Urine pH 6.5 (5.0 - 8.0)
[2020-04-02 17:55] LABS: Bacteria 1+ /hpf (None Seen); Squamous Epithelial Cells - UA 0-5 SEEN /hpf (5-10)
[2020-04-02 17:56] LABS: Internal QC Validated? YES +Cl - CLEAR BKGD; International Normalized Ratio 1.1; Pregnancy, Urine Negative Negative; Prothrombin Time (Protime)PT. 13.4 SECONDS (11.7-14.9)
[2020-04-02 18:03] LABS: Amphetamine Urine VISTA NEGATIVE (<1000 ng/mL); Barbiturate Urine VISTA NEGATIVE (< 200 ng/mL); Benzodiazepine Urine VISTA NEGATIVE (< 200 ng/mL); Cocaine Urine VISTA NEGATIVE (< 300 ng/mL); Ecstacy Urine VISTA NEGATIVE (< 500 ng/mL); Methadone Urine VISTA NEGATIVE (< 300 ng/mL); PCP Urine VISTA NEGATIVE (< 25 ng/mL); THC Urine VISTA NEGATIVE (< 50 ng/mL); Vista UDS pH Range 6
[2020-04-02 18:04] LABS: AST(SGOT) 54 U/L (15-37); Alanine Aminotransfer ALT/SGPT 91 U/L (13-56); Albumin, Serum 3.8 g/dL (3.2-5.0); Alkaline Phosphatase 101 U/L (45-117); Anion Gap 3 (5-15); BUN 8 mg/dL (7-18); BUN/Creat Ratio 10.2 RATIO (10-20); Calcium,Total 9.6 mg/dL (8.5-10.1); Chloride 111 mmol/L (98-107); Creatinine, Serum 0.78 mg/dL (0.55-1.02); EST Glomerular Filtration Rate 98 mL/min (>60); Est Glom Filt Rate - Afr Amer 119 mL/min (>60); Estimated Creatinine Clearance 102.66 ml/min; Glucose 97 mg/dL (74-106); Protein, Total 7.8 g/dL (6.4-8.2); Sodium Level 137 mmol/L (136-145)
[2020-04-02 18:23] VITALS: BP 111/70; PULSE 89; RESP 18; TEMP 37.1; O2SAT 98
--- NOTE | 2020-04-02 18:28 | PCM.HP.STD ---
Problem List (1) Opiate withdrawal Status: Acute (2) Alcohol abuse Status: Acute (3) Alcohol use disorder Status: Acute (4) Opiate dependence Status: Acute (5) Opioid abuse Status: Acute (6) Anxiety Status: Chronic (7) RLS (restless legs syndrome) Status: Chronic History of Present Illness Date of Admission: 04/02/20 Chief Complaint: agitation. restlessness. The patient is a 19 year old F presents seeking treatment for fentanyl and alcohol withdrawal. Patient's last use of fentanyl was around 9 AM on the and last consumption of alcohol was about 3 days ago. Since then, more recently since last using fentanyl, she has been having some agitation, restlessness rhinitis. Patient was just here earlier in the week and then left AGAINST MEDICAL ADVICE. She states that she does not want to be put on Suboxone as it can precipitate withdrawal. I told her that she would not be that she would be on the just buprenorphine itself and total taper. She stated that she would prefer just to be on lorazepam. Told her that I am concerned most of her symptoms are associated with opiate withdrawal we will treat her as such. [] Past Medical History Past Medical History (Chronic Problems): Chronic Problems Anxiety (Chronic) RLS (restless legs syndrome) (Chronic) Allergies No Known Allergies Allergy (Verified 04/02/20 17:00) Home Medications: Ambulatory Orders Medication Instructions Recorded Prazosin HCl 2 mg PO QHS 02/25/20 Quetiapine Fumarate [Seroquel] 200 mg PO QHS 02/25/20 busPIRone [Buspar] 15 mg PO DAILY 02/25/20 Gabapentin [Neurontin] 600 mg PO DAILY 04/02/20 Gabapentin [Neurontin] 800 mg PO QHS 04/02/20 Hydroxyzine Pamoate [Vistaril] 50 mg PO TID PRN 04/02/20 Surgical History: no surgical history Psychiatric History: Anxiety, Depression, Post traumatic stress 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 Paternal History Items: Diabetes Review of Systems Constitutional: Denies: Anorexia, Chills, Fever Eyes: Denies: Blurred vision, Eyelid Inflammation HEENT: Reports: - - Rhinitis. Denies: Head Aches, Sinus Congestion, Sinus Drainage Cardiovascular: Denies: Chest Pain, Palpitations Respiratory: Denies: Cough, Shortness of breath at rest, Sputum production Hematologic/ Lymphatic: Denies: Easy Bruising, Easy Bleeding, Hx of blood clot Comment: All review of systems were negative except as mentioned above in the history of present illness and the other review of systems. VTE Information - Inpt Only VTE Present on Admission: No VTE Mechan Device Prophylaxis: None VTE Pharm Prophylaxis ordered?: No Reason prophylaxis not ordered:: Treatment Not Indicated Patient Problems: Active and Suspected Problems Alcohol use disorder (Acute) Opioid abuse (Acute) Opiate dependence (Acute) Alcohol abuse (Acute) Opiate withdrawal (Acute) - Physical Exam Vitals/I&O's: Vital Signs Temp Pulse Resp BP Pulse Ox 37.1 C 89 18 111/70 98 04/02/20 18:23 04/02/20 18:23 04/02/20 18:23 04/02/20 18:23 04/02/20 18:23 Oxygen Delivery Method Room Air Weight: 72.575 kg Body Mass Index (BMI) 26.6 General: Alert, Cooperative, No apparent distress HEENT: Atraumatic, Normocephalic Oral: Moist Mucosa, No Gingival or Mucosal Lesions/ Ulcerations Neck: No Nodes, Thyroid Normal Size and Texture Lungs: Clear to auscultation, Normal air movement, No rhonchi, No wheeze, No rales Cardiovascular: Regular rate, Regular Rhythm, Normal S1, Normal S2, No murmurs Abdomen: Bowel Sounds Present, Soft, Non Tender, Non-Distended, No Hepato-splenomegaly Extremities: No edema, No Calf Tenderness Skin: No rashes, No breakdown Psych/Mental Status: Appropriate, Anxious Laboratory Results 04/02/20 17:30: WBC 8.4, RBC 4.93, Hgb 14.5, Hct 43.4, MCV 88.0, MCH 29.4, MCHC 33.4, RDW Std Deviation 37.6, RDW Coeff of [place] 11.6, Plt Count 234, MPV 10.3, Immature Gran % (Auto) 0.200, Neut % (Auto) 74.5 H, Lymph % (Auto) 19.2, [place] % (Auto) 4.4, Eos % (Auto) 1.2, Baso % (Auto) 0.5, Absolute Neuts (auto) 6.2, Absolute Lymphs (auto) 1.60, Nucleated RBC % 0 04/02/20 17:30: PT 13.4, INR 1.1 04/02/20 17:30: Sodium 137, Potassium 4.0, Chloride 111 H, Carbon Dioxide 23.0, Anion Gap 3 L, BUN 8, Creatinine 0.78, Estim Creat Clear Calc 102.66, Est GFR (MDRD) Af Amer 119, Est GFR (MDRD) Non-Af 98, BUN/Creatinine Ratio 10.2, Glucose 97, Calcium 9.6, Total Bilirubin 0.60, AST 54 H, ALT 91 H, Alkaline Phosphatase 101, Total Protein 7.8, Albumin 3.8, Globulin 4.0, Albumin/Globulin Ratio 1.0 04/02/20 17:30: Ethyl Alcohol 9.0 04/02/20 17:30: Urine Opiates Screen NEGATIVE, Urine Methadone Screen NEGATIVE, Ur Barbiturates Screen NEGATIVE, Ur Phencyclidine Scrn NEGATIVE, Ur Amphetamines Screen NEGATIVE, U Methamphetamin-MDMA NEGATIVE, U Benzodiazepines Scrn NEGATIVE, Urine Cocaine Screen NEGATIVE, U Cannabinoids Screen NEGATIVE, Ur Drug Screen Comment 04/02/20 17:30: Urine Color Yellow, Urine Clarity Sl. Cloudy, Urine pH 6.5, Ur Specific [place] 1.010, Urine Protein Negative, Urine Glucose (UA) Normal, Urine Ketones Negative, Urine Occult Blood Negative, Urine Nitrite Negative, Urine Bilirubin Negative, Urine Urobilinogen Normal, Ur Leukocyte Esterase Negative, Urine RBC 0 SEEN, Urine WBC 0 SEEN, Ur Squamous Epith Cells 0-5 SEEN, Urine Bacteria 1+, Urine Mucus 0 SEEN, Urine Test Negative Assessment/Plan All Active Problems Alcohol use disorder (Acute) Opioid abuse (Acute) Opiate dependence (Acute) Alcohol abuse (Acute) Opiate withdrawal (Acute) 1. Acute opiate withdrawal: Last use was well over 24 hours ago. Plan is buprenorphine taper. Patient said that she is get a follow-up with some program upon discharge but will have case management further facilitate that to make sure that she can get plugged into that quickly. Patient is a high likelihood of leave AGAINST MEDICAL ADVICE given that she was just here a week ago for the same issue. I did tell her that she would not be receiving lorazepam or phenobarbital as I feel that her symptoms are more attributable to acute opiate withdrawal and her last consumption of alcohol was about 72 hours ago. She said that she is concerned about being in precipitated withdrawal with Suboxone but I once again informed her that she would be on buprenorphine without naloxone. Patient states that she smokes fentanyl and does not inject. 2. Polysubstance abuse: Complicates overall care and recovery. I will put the patient on on thiamine and folate. Just monitoring for now consider phenobarbital patient does start going to acute alcohol withdrawal but as mentioned above, I feel that her symptoms are more attributable to acute opiate withdrawal. 3. Anxiety: Complicates her care as well. Also concerned about this limited insight into her actual addiction and maintaining sobriety. Will require further outpatient evaluation with counseling. 4. VTE prophylaxis low risk and not indicated. Additionally, patient has gabapentin on her home medication list. I reviewed the patient's OARRS and she has not been prescribed gabapentin since October. Will not continue the dosing that she was on at that time but just the as needed that she will receive here. Inpatient E&M: 90860 Init Hosp L2
--- NOTE | 2020-04-02 18:28 | CM.ED ---
Social Work Consult: Substance Abuse Informant: Self-Referral Met with patient in room. Introduced self and vp digital marketing social media and crm role. Patient agreeable to speak with this vp digital marketing social media and crm. Patient confirms to be seeking medical management of withdrawal symptoms, [facility]. Patient reports substance of choice as Fentanyl. Patient reports plan to follow up with outpatient program. Patient verbally agreeing to [facility] contract. Telephone call to [employer], no answer. no voicemail. J Luis LOPEZ, SOHEILA-S
[2020-04-02 18:55] VITALS: BMI 26.6
[2020-04-02 19:07] VITALS: BP 114/70; PULSE 95; RESP 16; TEMP 37.1; O2SAT 100
[2020-04-02 20:19] VITALS: BP 92/54; PULSE 67; RESP 16; TEMP 36.8; O2SAT 100
[2020-04-02] MEDS: Thiamine Hydrochloride 100 MG Tablet PO (20:21)
[2020-04-02] MEDS: Buprenorphine HCl 2 MG TAB.SUBL SL (20:22)
[2020-04-02] MEDS: Folic Acid 1 MG Tablet PO (20:22)
[2020-04-02] MEDS: QUEtiapine 100 MG Tablet 200 MG PO (20:24)
[2020-04-02] MEDS: Gabapentin 300 MG Capsule PO (22:12)
[2020-04-03 00:30] VITALS: BP 99/59; PULSE 70; RESP 16; TEMP 36.9; O2SAT 100
[2020-04-03 04:22] VITALS: BP 102/66; PULSE 64; RESP 16; TEMP 36.7; O2SAT 98
[2020-04-03] MEDS: Buprenorphine HCl 2 MG TAB.SUBL SL ×2 (04:25→20:36)
[2020-04-03 07:43] VITALS: BP 97/58; PULSE 102; RESP 12; TEMP 36.6; O2SAT 94
[2020-04-03] MEDS: Folic Acid 1 MG Tablet PO (07:48)
[2020-04-03] MEDS: busPIRone 15 MG TABLET PO (07:48)
[2020-04-03] MEDS: hydrOXYzine PAM 25 MG Capsule 50 MG PO ×2 (07:48→16:20)
[2020-04-03] MEDS: Thiamine Hydrochloride 100 MG Tablet PO (07:48)
[2020-04-03] MEDS: Methocarbamol 750 MG Tablet 1500 MG PO ×2 (07:48→16:20)
[2020-04-03] MEDS: Gabapentin 300 MG Capsule PO ×2 (07:48→20:36)
[2020-04-03] MEDS: Phenobarbital 32.4 MG Tablet 64.8 MG PO ×4 (09:28→22:01)
--- NOTE | 2020-04-03 12:18 | PCM.PN.HOSP ---
Patient Problems: Active and Suspected Problems Alcohol use disorder (Acute) Opioid abuse (Acute) Opiate dependence (Acute) Alcohol abuse (Acute) Opiate withdrawal (Acute) Subjective: Doing okay, she states that she is very anxious and that she also drinks every day Vitals/I&O's: Vital Signs Temp Pulse Resp BP Pulse Ox 97.9 F 102 H 12 97/58 L 94 04/03/20 07:43 04/03/20 07:43 04/03/20 07:43 04/03/20 07:43 04/03/20 07:43 Oxygen Delivery Method Room Air Weight: 160 lb Body Mass Index (BMI) 26.6 General: Alert, Oriented x3, Cooperative, No apparent distress HEENT: Atraumatic, PERRLA, EOMI, Normocephalic Oral: Moist Mucosa Neck: Supple, No JVD Lungs: Clear to auscultation, Normal air movement, No rhonchi, No wheeze, No rales, Diminished Cardiovascular: Regular rate, Regular Rhythm, Normal S1, Normal S2, No murmurs Abdomen: Soft, Non Tender, Non-Distended, No Hepato-splenomegaly Extremities: No edema, Capillary Refill Less than 3 Seconds Skin: No rashes, No breakdown Neurological: Neuro grossly intact, Sensory exam intact to light touch and pain Psych/Mental Status: Anxious Laboratory Results 04/02/20 17:30: WBC 8.4, RBC 4.93, Hgb 14.5, Hct 43.4, MCV 88.0, MCH 29.4, MCHC 33.4, RDW Std Deviation 37.6, RDW Coeff of [place] 11.6, Plt Count 234, MPV 10.3, Immature Gran % (Auto) 0.200, Neut % (Auto) 74.5 H, Lymph % (Auto) 19.2, [place] % (Auto) 4.4, Eos % (Auto) 1.2, Baso % (Auto) 0.5, Absolute Neuts (auto) 6.2, Absolute Lymphs (auto) 1.60, Nucleated RBC % 0 04/02/20 17:30: PT 13.4, INR 1.1 04/02/20 17:30: Sodium 137, Potassium 4.0, Chloride 111 H, Carbon Dioxide 23.0, Anion Gap 3 L, BUN 8, Creatinine 0.78, Estim Creat Clear Calc 102.66, Est GFR (MDRD) Af Amer 119, Est GFR (MDRD) Non-Af 98, BUN/Creatinine Ratio 10.2, Glucose 97, Calcium 9.6, Total Bilirubin 0.60, AST 54 H, ALT 91 H, Alkaline Phosphatase 101, Total Protein 7.8, Albumin 3.8, Globulin 4.0, Albumin/Globulin Ratio 1.0 04/02/20 17:30: Ethyl Alcohol 9.0 04/02/20 17:30: Urine Opiates Screen NEGATIVE, Urine Methadone Screen NEGATIVE, Ur Barbiturates Screen NEGATIVE, Ur Phencyclidine Scrn NEGATIVE, Ur Amphetamines Screen NEGATIVE, U Methamphetamin-MDMA NEGATIVE, U Benzodiazepines Scrn NEGATIVE, Urine Cocaine Screen NEGATIVE, U Cannabinoids Screen NEGATIVE, Ur Drug Screen Comment 04/02/20 17:30: Urine Color Yellow, Urine Clarity Sl. Cloudy, Urine pH 6.5, Ur Specific [place] 1.010, Urine Protein Negative, Urine Glucose (UA) Normal, Urine Ketones Negative, Urine Occult Blood Negative, Urine Nitrite Negative, Urine Bilirubin Negative, Urine Urobilinogen Normal, Ur Leukocyte Esterase Negative, Urine RBC 0 SEEN, Urine WBC 0 SEEN, Ur Squamous Epith Cells 0-5 SEEN, Urine Bacteria 1+, Urine Mucus 0 SEEN, Urine Test Negative Current Medications Acetaminophen (Acetaminophen 500 Mg Tablet) 500 mg PO Q4H PRN PRN PRN Reason: Temp > 100.4 F Buprenorphine HCl (Buprenorphine Hcl 2 Mg Tab.Subl) 4 mg SL Q8H [facility]; Taper Stop: 04/05/20 19:59 Last Admin: 04/03/20 04:25 Dose: 4 mg Documented by: Buspirone HCl (Buspirone 15 Mg Tablet) 15 mg PO DAILY [facility] Last Admin: 04/03/20 07:48 Dose: 15 mg Documented by: Clonidine (Clonidine Hcl 0.1 Mg Tablet) 0.1 mg PO Q8H PRN PRN PRN Reason: RESTLESSNESS Dicyclomine HCl (Dicyclomine 10 Mg Capsule) 20 mg PO Q6H PRN PRN PRN Reason: Abdominal Discomfort Doxazosin Mesylate (Doxazosin 1 Mg Tablet) 2 mg PO QHS [facility] Last Admin: 04/02/20 20:23 Dose: Not Given Documented by: Folic Acid (Folic Acid 1 Mg Tablet) 1 mg PO DAILY@0800 [facility] Last Admin: 04/03/20 07:48 Dose: 1 mg Documented by: Gabapentin (Gabapentin 300 Mg Capsule) 300 mg PO Q8H PRN PRN PRN Reason: moderate to severe anxiety Last Admin: 04/03/20 07:48 Dose: 300 mg Documented by: Hydroxyzine Pamoate (Hydroxyzine Alix 25 Mg Capsule) 50 mg PO Q6H PRN PRN PRN Reason: mild anxiety Last Admin: 04/03/20 07:48 Dose: 50 mg Documented by: Sodium Chloride () 250 mls @ 15 mls/hr IV .[id number] PRN PRN Reason: Saline Flush Ibuprofen (Ibuprofen 600 Mg Tablet) 600 mg PO Q8H PRN PRN PRN Reason: Pain Score 1-10 Loperamide HCl (Loperamide 2 Mg Capsule) 2 mg PO Q4H PRN PRN PRN Reason: LOOSE STOOLS Methocarbamol (Methocarbamol 750 Mg Tablet) 1,500 mg PO Q6H PRN PRN PRN Reason: MUSCLE SPASM Last Admin: 04/03/20 07:48 Dose: 1,500 mg Documented by: Nicotine (Nicotine 21 Mg Patch) 21 mg TRANSDERM. DAILY [facility] Last Admin: 04/03/20 07:48 Dose: 21 mg Documented by: Ondansetron HCl (Ondansetron 8 Mg Tablet) 8 mg PO Q8H PRN PRN PRN Reason: NAUSEA Phenobarbital (Phenobarbital 32.4 Mg Tablet) 97.2 mg PO Q4H [facility]; Taper Stop: 04/07/20 16:44 Last Admin: 04/03/20 09:28 Dose: 97.2 mg Documented by: Quetiapine Fumarate (Quetiapine 100 Mg Tablet) 200 mg PO QHS [facility] Last Admin: 04/02/20 20:24 Dose: 200 mg Documented by: Sodium Chloride (0.9% Saline Lock 10 Ml Syringe) 10 - 40 ml IV UD PRN PRN Reason: SALINE FLUSH Thiamine HCl (Thiamine Hydrochloride 100 Mg Tablet) [facility] Last Admin: 04/03/20 07:48 Dose: 100 mg Documented by: Trazodone HCl (Trazodone 100 Mg Tablet) 100 mg PO QHS PRN PRN PRN Reason: INSOMNIA Medical Necessity - Tobacco Use Smoking Status: Current every day smoker Assessment/Plan All Active Problems Alcohol use disorder (Acute) Opioid abuse (Acute) Opiate dependence (Acute) Alcohol abuse (Acute) Opiate withdrawal (Acute) 1. Acute opiate withdrawal/polysubstance abuse -Continue with the opiate withdrawal protocol -She has left AMA multiple times before, the most recent time she left AMA was about a week ago -We will place her on a phenobarb taper as well for her alcohol 2. Anxiety/possible bipolar -We will complicate her recovery -She will need to be managed as an outpatient upon discharge to [facility] -Continue with Chanel Martinez DVT: Low risk Inpatient E&M: 40604 Subs Hosp L2
[2020-04-03 12:23] VITALS: BP 102/59; PULSE 73; RESP 12; TEMP 36.9; O2SAT 100
[2020-04-03] MEDS: cloNIDine HCl 0.1 MG Tablet PO (12:28)
[2020-04-03] MEDS: Ibuprofen 600 MG Tablet PO (12:28)
[2020-04-03 16:18] VITALS: BP 100/59; PULSE 79; RESP 14; TEMP 37.2; O2SAT 96
[2020-04-03 20:26] VITALS: BP 105/63; PULSE 83; RESP 18; TEMP 37.3; O2SAT 100
[2020-04-03] MEDS: QUEtiapine 100 MG Tablet 200 MG PO (22:02)
[2020-04-04] MEDS: Phenobarbital 32.4 MG Tablet 64.8 MG PO ×6 (01:32→19:53)
[2020-04-04 03:59] VITALS: BP 116/69; PULSE 84; RESP 16; TEMP 37.2; O2SAT 99
[2020-04-04] MEDS: Buprenorphine HCl 2 MG TAB.SUBL SL ×2 (04:56→12:56)
[2020-04-04] MEDS: Gabapentin 300 MG Capsule PO ×2 (04:56→12:56)
[2020-04-04 09:15] VITALS: BP 106/61; PULSE 95; RESP 16; TEMP 37.1; O2SAT 99
[2020-04-04] MEDS: busPIRone 15 MG TABLET PO (09:20)
[2020-04-04] MEDS: Folic Acid 1 MG Tablet PO (09:20)
[2020-04-04] MEDS: Thiamine Hydrochloride 100 MG Tablet PO (09:20)
[2020-04-04] MEDS: cloNIDine HCl 0.1 MG Tablet PO (09:25)
--- NOTE | 2020-04-04 10:35 | ADDICTION ---
This customs entry writer met with patient in her room to finalize d/c planning. Client confirmed that she plans to d/c (04/04/2020) at noon and has transportation set up to go home to [place], [place].
[2020-04-04 12:55] VITALS: BP 95/60; PULSE 58; RESP 16; TEMP 37.2; O2SAT 94
--- NOTE | 2020-04-04 14:34 | CHAPLAIN ---
Type of Pastoral Visit _x__ Initial Visit ___ Follow-up Visit ___ On-call Visit ___ General Patient Visit ___ Spiritual Assessment ___ Family Conference ___ Bereavement ___ Rapid Response ___ Code Blue ___ Other (describe below) Pastoral Care Referral From _x__ Patient ___ Family ___ Nurse ___ Physician ___ Senior Maintenance Machinist ___ [place] Mechanic ___ Other (describe below) Sacrament/Intervention _x__ Active listening ___ Anointing ___ Confucianism ___ Bereavement ___ Communion _x__ Lani exploration ___ _x__ Life review _x__ Prayer ___ Reconciliation ___ Sacrament of Sick _x__ Supportive presence ___ Wedding ___ Other (describe below) Pastoral Comments patient is welcoming of spiritual care support and describes current life review and past life issues; pt states that she once went to hindu twice a week but no longer has a connection to a spiritual support system and is very limited in personal support from family or friends; pt is from [place] and says she will return to some counseling which she disconnected in the Spring; pt welcomes presence, prayer, and requests a Bible - given
--- NOTE | 2020-04-04 15:10 | PCM.PROGNOTE ---
Patient Problems: Active and Suspected Problems Alcohol use disorder (Acute) Opioid abuse (Acute) Opiate dependence (Acute) Alcohol abuse (Acute) Opiate withdrawal (Acute) Subjective: Patient was seen and examined today, she does not complain of any tremor or nervousness to this examiner, I talked with the social economist for 180 today and she states that the patient will be going to [place] for an outpatient program tomorrow. - Physical Exam Vitals/I&O's: Vital Signs Temp Pulse Resp BP Pulse Ox 98.9 F 58 L 16 95/60 94 04/04/20 12:55 04/04/20 12:55 04/04/20 12:55 04/04/20 12:55 04/04/20 12:55 Oxygen Delivery Method Room Air Weight: 72.575 kg Body Mass Index (BMI) 26.6 Intake and Output for Last 24 Hours 04/02/20 04/03/20 04/04/20 23:59 23:59 23:59 Intake Total 1660 / 1660 700 / 700 Balance 1660 / 1660 700 / 700 General: Alert, Oriented x3, Cooperative HEENT: Atraumatic, PERRLA, EOMI, Normocephalic Neck: Supple, No JVD, Negative Carotid Bruits Lungs: Clear to auscultation, Normal air movement, No rhonchi, No wheeze Cardiovascular: Regular rate, Regular Rhythm, Normal S1, Normal S2, No murmurs, PMI Normal, No rub noted, No Gallop Abdomen: Bowel Sounds Present, Soft, Non Tender Extremities: No clubbing, No cyanosis, No edema, Capillary Refill Less than 3 Seconds Skin: No rashes, No breakdown Musculoskeletal: No Tenderness to Palpation of Joints or Extremities Neurological: Cranial nerves II-XII grossly intact Psych/Mental Status: Normal Affect, Appropriate, Alert and oriented to time, place, person, mood and affect Current Medications Acetaminophen (Acetaminophen 500 Mg Tablet) 500 mg PO Q4H PRN PRN PRN Reason: Temp > 100.4 F Buprenorphine HCl (Buprenorphine Hcl 2 Mg Tab.Subl) 2 mg SL Q8H [facility]; Taper Stop: 04/05/20 19:59 Last Admin: 04/04/20 12:56 Dose: 2 mg Documented by: Buspirone HCl (Buspirone 15 Mg Tablet) 15 mg PO DAILY [facility] Last Admin: 04/04/20 09:20 Dose: 15 mg Documented by: Clonidine (Clonidine Hcl 0.1 Mg Tablet) 0.1 mg PO Q8H PRN PRN PRN Reason: RESTLESSNESS Last Admin: 04/04/20 09:25 Dose: 0.1 mg Documented by: Dicyclomine HCl (Dicyclomine 10 Mg Capsule) 20 mg PO Q6H PRN PRN PRN Reason: Abdominal Discomfort Doxazosin Mesylate (Doxazosin 1 Mg Tablet) 2 mg PO QHS [facility] Last Admin: 04/03/20 22:02 Dose: Not Given Documented by: Folic Acid (Folic Acid 1 Mg Tablet) 1 mg PO DAILY@0800 [facility] Last Admin: 04/04/20 09:20 Dose: 1 mg Documented by: Gabapentin (Gabapentin 300 Mg Capsule) 300 mg PO Q8H PRN PRN PRN Reason: moderate to severe anxiety Last Admin: 04/04/20 12:56 Dose: 300 mg Documented by: Hydroxyzine Pamoate (Hydroxyzine Alix 25 Mg Capsule) 50 mg PO Q6H PRN PRN PRN Reason: mild anxiety Last Admin: 04/03/20 16:20 Dose: 50 mg Documented by: Sodium Chloride () 250 mls @ 15 mls/hr IV .[id number] PRN PRN Reason: Saline Flush Ibuprofen (Ibuprofen 600 Mg Tablet) 600 mg PO Q8H PRN PRN PRN Reason: Pain Score 1-10 Last Admin: 04/03/20 12:28 Dose: 600 mg Documented by: Loperamide HCl (Loperamide 2 Mg Capsule) 2 mg PO Q4H PRN PRN PRN Reason: LOOSE STOOLS Methocarbamol (Methocarbamol 750 Mg Tablet) 1,500 mg PO Q6H PRN PRN PRN Reason: MUSCLE SPASM Last Admin: 04/03/20 16:20 Dose: 1,500 mg Documented by: Nicotine (Nicotine 21 Mg Patch) 21 mg TRANSDERM. DAILY [facility] Last Admin: 04/04/20 09:21 Dose: 21 mg Documented by: Ondansetron HCl (Ondansetron 8 Mg Tablet) 8 mg PO Q8H PRN PRN PRN Reason: NAUSEA Phenobarbital (Phenobarbital 32.4 Mg Tablet) 97.2 mg PO Q4H [facility]; Taper Stop: 04/07/20 16:44 Last Admin: 04/04/20 13:00 Dose: 97.2 mg Documented by: Quetiapine Fumarate (Quetiapine 100 Mg Tablet) 200 mg PO QHS [facility] Last Admin: 04/03/20 22:02 Dose: 200 mg Documented by: Sodium Chloride (0.9% Saline Lock 10 Ml Syringe) 10 - 40 ml IV UD PRN PRN Reason: SALINE FLUSH Thiamine HCl ([facility] Hydrochloride 100 Mg Tablet) [facility] Last Admin: 04/04/20 09:20 Dose: 100 mg Documented by: Trazodone HCl (Trazodone 100 Mg Tablet) 100 mg PO QHS PRN PRN PRN Reason: INSOMNIA Medical Necessity - Tobacco Use Smoking Status: Current every day smoker Assessment/Plan All Active Problems Alcohol use disorder (Acute) Opioid abuse (Acute) Opiate dependence (Acute) Alcohol abuse (Acute) Opiate withdrawal (Acute) #1 acute opiate withdrawal-continue present medications, anticipate discharge tomorrow, I do not believe the patient should use as needed gabapentin-I will stop this medication #2 acute alcohol withdrawal-continue medications per protocol, anticipate discharge tomorrow #3 chronic alcoholism #4 chronic opiate addiction Inpatient E&M: [id number] [facility] H[facility] L2
[2020-04-04 17:40] VITALS: BP 93/54; PULSE 78; RESP 16; TEMP 36.8; O2SAT 100
[2020-04-04] MEDS: Doxazosin 1 MG Tablet 2 MG PO (19:53)
[2020-04-04] MEDS: QUEtiapine 100 MG Tablet 200 MG PO (19:54)
[2020-04-04 19:56] VITALS: BP 102/66; PULSE 75; RESP 16; TEMP 36.9; O2SAT 100
[2020-04-05] MEDS: Phenobarbital 32.4 MG Tablet 64.8 MG PO ×3 (00:08→09:00)
[2020-04-05 04:21] VITALS: BP 94/63; PULSE 73; RESP 16; TEMP 36.5; O2SAT 99
--- NOTE | 2020-04-05 07:42 | DCINST_ITS ---
- Discharge Diagnoses Current Active Problems: Current Active and Chronic Problems Alcohol use disorder (Acute) Opioid abuse (Acute) Anxiety (Chronic) RLS (restless legs syndrome) (Chronic) Opiate dependence (Acute) Alcohol abuse (Acute) Opiate withdrawal (Acute) You will use the following diet at home:: No restrictions Your food should be the consistency of: Regular Your liquids should be the consistency of: Regular/Thin Discharge Activity: Return to Normal Activity Weight Bearing Status: Full weight bearing Allergies/Adverse Reactions: Allergies No Known Allergies Allergy (Verified 04/02/20 17:00) Medications to take at Discharge Prazosin HCl 2 mg PO QHS 02/25/20 Quetiapine Fumarate [Seroquel] 200 mg PO QHS 02/25/20 busPIRone [Buspar] 15 mg PO TID 02/25/20 Gabapentin [Neurontin] 600 mg PO DAILY 04/02/20 Gabapentin [Neurontin] 800 mg PO QHS 04/02/20 Hydroxyzine Pamoate [Vistaril] 50 mg PO TID PRN 04/02/20 Primary Care Physician: Care Physician,No Primary [Primary Care Provider] - Test Results: Test results from this visit will be discussed in further detail at your follow- up appointment, if applicable. Please Follow Up With: follow up as directed in [place]
--- NOTE | 2020-04-05 08:24 | DS.PCM_ITS ---
Discharge Date and Diagnosis - Problem List Patient Problems: Active and Suspected Problems Alcohol use disorder (Acute) Opioid abuse (Acute) Opiate dependence (Acute) Alcohol abuse (Acute) Opiate withdrawal (Acute) Date of Admission: 04/02/20 Date of Discharge: 04/05/20 - Primary Discharge Diagnosis Acute Problems: Active Problems #1 acute opiate withdrawal #2 acute alcohol withdrawal #3 opiate addiction #4 alcoholism - Secondary Discharge Diagnosis Chronic Problems: Chronic Problems Anxiety (Chronic) RLS (restless legs syndrome) (Chronic) Hospital Course and Treatment Operations: None Procedures: None Summary of Care Provided: The patient is a 19 year old F who was seen in the emergency room at [facility] requesting detox services for opiate and alcohol addiction. Admission labs other than elevation of 2 liver enzymes were unremarkable, patient was admitted to [place] [id number] and orders were entered using the alcohol and opiate withdrawal order sets. Patient was seen in consultation by the social worker psychiatric from [facility], it was arranged that the patient would go to [place], [place] at the time of discharge for outpatient detox services. On 04/05/2020, patient was seen and examined: On examination she appeared in good health and spirits, she does not appear to be in any distress. Vital signs as documented. Skin warm and dry and without overt rashes. Neck without JVD, thyroid appears normal, trachea is midline, neck is supple. Lungs clear, normal air movement was noted. Heart exam notable for regular rhythm, normal sounds and absence of murmurs, rubs or gallops. Abdomen unremarkable and without evidence of organomegaly, masses, or abdominal aortic enlargement, bowel sounds are present in all 4 quadrants, no abdominal tenderness was noted. Extremities nonedematous, no cyanosis was noted, no clubbing was noted. Neuro: Cranial nerves II through XII are grossly intact, no focal motor deficits were noted, sensation to light touch and pinprick is intact, motor exam 5/5 throughout. Psych: Patient is alert and oriented x3, she does not appear anxious or depressed, she does not appear agitated. Patient appears stable for discharge on 04/05/2020, she was to follow-up in [facility] for outpatient detox services. Patient Problems: Active and Suspected Problems Alcohol use disorder (Acute) Opioid abuse (Acute) Opiate dependence (Acute) Alcohol abuse (Acute) Opiate withdrawal (Acute) - Physical Exam Vitals/I&O's: Vital Signs Temp Pulse Resp BP Pulse Ox 97.7 F L 73 16 94/63 99 04/05/20 04:21 04/05/20 04:21 04/05/20 04:21 04/05/20 04:21 04/05/20 04:21 Oxygen Delivery Method Room Air Weight: 72.575 kg Body Mass Index (BMI) 26.6 Intake and Output for Last 24 Hours 04/03/20 04/04/20 04/05/20 23:59 23:59 23:59 Intake Total 1660 / 1660 1100 / 1100 Balance 1660 / 1660 1100 / 1100 Current Medications Acetaminophen (Acetaminophen 500 Mg Tablet) 500 mg PO Q4H PRN PRN PRN Reason: Temp > 100.4 F Buprenorphine HCl (Buprenorphine Hcl 2 Mg Tab.Subl) 2 mg SL Q12H [facility]; Taper Stop: 04/05/20 19:59 Last Admin: 04/04/20 19:48 Dose: Not Given Documented by: Buspirone HCl (Buspirone 15 Mg Tablet) 15 mg PO DAILY [facility] Last Admin: 04/04/20 09:20 Dose: 15 mg Documented by: Clonidine (Clonidine Hcl 0.1 Mg Tablet) 0.1 mg PO Q8H PRN PRN PRN Reason: RESTLESSNESS Last Admin: 04/04/20 09:25 Dose: 0.1 mg Documented by: Doxazosin Mesylate (Doxazosin 1 Mg Tablet) 2 mg PO QHS [facility] Last Admin: 04/04/20 19:53 Dose: 2 mg Documented by: Hydroxyzine Pamoate (Hydroxyzine Alix 25 Mg Capsule) 50 mg PO Q6H PRN PRN PRN Reason: mild anxiety Last Admin: 04/03/20 16:20 Dose: 50 mg Documented by: Sodium Chloride () 250 mls @ 15 mls/hr IV .[id number] PRN PRN Reason: Saline Flush Ibuprofen (Ibuprofen 600 Mg Tablet) 600 mg PO Q8H PRN PRN PRN Reason: Pain Score 1-10 Last Admin: 04/03/20 12:28 Dose: 600 mg Documented by: Nicotine (Nicotine 21 Mg Patch) 21 mg TRANSDERM. DAILY [facility] Last Admin: 04/04/20 09:21 Dose: 21 mg Documented by: Phenobarbital (Phenobarbital 32.4 Mg Tablet) 64.8 mg PO Q4H [facility]; Taper Stop: 04/07/20 16:44 Last Admin: 04/05/20 04:19 Dose: 64.8 mg Documented by: Quetiapine Fumarate (Quetiapine 100 Mg Tablet) 200 mg PO QHS [facility] Last Admin: 04/04/20 19:54 Dose: 200 mg Documented by: Sodium Chloride (0.9% Saline Lock 10 Ml Syringe) 10 - 40 ml IV UD PRN PRN Reason: SALINE FLUSH Discharge Activity: Return to Normal Activity Weight Bearing Status: Full weight bearing Home Medications: Medications to take at Discharge Prazosin HCl 2 mg PO QHS 02/25/20 Quetiapine Fumarate [Seroquel] 200 mg PO QHS 02/25/20 busPIRone [Buspar] 15 mg PO TID 02/25/20 Gabapentin [Neurontin] 600 mg PO DAILY 04/02/20 Gabapentin [Neurontin] 800 mg PO QHS 04/02/20 Hydroxyzine Pamoate [Vistaril] 50 mg PO TID PRN 04/02/20 Primary Care Physician: Care Physician,No Primary [Primary Care Provider] - Please Follow Up With: follow up as directed in [place] Disposition: Home Minutes spent on discharge:: 32 Patient Condition:: Stable Medical Necessity - Tobacco Use Smoking Status: Current every day smoker Meaningful Use Info Meaningful Use Diagnoses (Choose all that apply): None applicable Inpatient E&M: [id number] Disch Hosp
[2020-04-05 08:42] VITALS: BP 112/72; PULSE 96; RESP 18; TEMP 36.3; O2SAT 97
[2020-04-05] MEDS: busPIRone 15 MG TABLET PO (09:00)
[2020-04-05] MEDS: hydrOXYzine PAM 25 MG Capsule 50 MG PO (09:01)
--- NOTE | 2020-04-05 10:10 | PHA.DC.MR ---
Pharmacy Service has performed discharge medication reconciliation for this patient. The patient's discharge medication list was reviewed for discrepancies and discrepancies were resolved. Home Medications Prazosin HCl 2 mg PO QHS 02/25/20 Quetiapine Fumarate [Seroquel] 200 mg PO QHS 02/25/20 busPIRone [Buspar] 15 mg PO TID 02/25/20 Gabapentin [Neurontin] 600 mg PO DAILY 04/02/20 Gabapentin [Neurontin] 800 mg PO QHS 04/02/20 Hydroxyzine Pamoate [Vistaril] 50 mg PO TID PRN 04/02/20
[2020-04-05 11:22] VITALS: BP 108/65; PULSE 74; RESP 18; TEMP 36.6; O2SAT 95
== END 2020-04-05 12:10 | disposition home or self-care (01) | DRG 773 ==
LOC: ED 17:26 → MS3 18:25
PROVIDERS: Emergency Provider Emergency Medicine; Visit Provider Internal Medicine
DX: F11.23 Opioid dependence with withdrawal (principal); F10.239 Alcohol dependence with withdrawal, unspecified; G25.81 Restless legs syndrome; F32.9 Major depressive disorder, single episode, unspecified; F41.9 Anxiety disorder, unspecified; F17.200 Nicotine dependence, unspecified, uncomplicated; Z79.899 Other long term (current) drug therapy
CPT/HCPCS: 36415; 80053; 80307; 80320; 81001; 81025; 85025; 85610; 99283; 99406; G0480